=== PATIENT | female | born 1990 | race Caucasian/White ===

== ENCOUNTER 2019-12-06 10:07 | Outpatient (CLI) | payer OTHER, SELFPAY ==
[2019-12-07 13:07] LABS: SARS-CoV-2 RNA PCR Negative
== END 2019-12-06 10:08 | disposition home or self-care (01) ==
PROVIDERS: PCP Family Medicine; Visit Provider Family Medicine
DX: J02.9 Acute pharyngitis, unspecified (principal); Z20.828 Contact with and (suspected) exposure to other viral communicable diseases
CPT/HCPCS: 87081; 87635; 87880; C9803; U0003

== ENCOUNTER 2019-12-17 10:50 | Outpatient (CLI) | payer OTHER, SELFPAY ==
[2019-12-18 20:50] LABS: SARS-CoV-2 RNA PCR Negative
== END 2019-12-17 10:51 | disposition home or self-care (01) ==
PROVIDERS: PCP Family Medicine; Visit Provider Family Medicine
DX: Z20.828 Contact with and (suspected) exposure to other viral communicable diseases (principal)
CPT/HCPCS: 87635; C9803; U0003

== ENCOUNTER 2020-04-03 14:14 | Outpatient (CLI) | payer OTHER, SELFPAY ==
[2020-04-03 15:12] LABS: Influenza Control Valid (Valid); SARS-CoV-2 Ag Negative (Negative)
== END 2020-04-03 14:15 | disposition home or self-care (01) ==
LOC: CHSLAB 14:17
PROVIDERS: PCP Family Medicine; Visit Provider Family Medicine
DX: R50.9 Fever, unspecified (principal)
CPT/HCPCS: 87426; 87804; C9803

== ENCOUNTER 2021-01-19 13:00 | Outpatient (CLI) | payer OTHER, SELFPAY ==
--- NOTE | ~2021-01-19 | US_ITS ---
EXAMINATION: US pelvic complete DATE: 01/19/2021 13:37 INDICATION: Irregular menses TECHNIQUE: Multiple transabdominal and endovaginal sonographic images of the pelvis were obtained. COMPARISON: None. FINDINGS: The uterus measures 10.1 x 4.2 x 6.2 cm. The endometrial complex measures 11 mm. The right ovary measures 3.4 x 1.9 x 1.7 cm. The left ovary measures 3.2 x 1.9 x 2.1 cm. There is normal vascul ar flow in the ovaries. There is a small volume of likely physiologic free fluid in the pelvis. IMPRESSION: 1. No sonographic correlate for the patient's symptoms. Reviewed, dictated and finalized at location [facility]
== END 2021-01-19 13:01 | disposition home or self-care (01) ==
LOC: CHSIMG 13:01
PROVIDERS: PCP Family Medicine; Visit Provider Family Medicine
DX: N92.6 Irregular menstruation, unspecified (principal)
CPT/HCPCS: 76856

== ENCOUNTER 2024-05-25 09:10 | Outpatient (CLI) | payer OTHER, SELFPAY ==
--- NOTE | 2024-05-25 09:20 | ECG_ITS ---
Test Date: 2024-05-25 09:43:00 Measurements Intervals [place] Rate: 65 P: 66 NV: 139 QRS: 77 QRSD: 89 T: 69 QT: 373 QTc: 390 Interpretive Statements SINUS RHYTHM NORMAL ECG No previous ECG available for comparison Electronically Signed On 05-25-2024 10:35:55 CDT by Zheng Trinidad D.O.
--- OUTSIDE RECORDS SUMMARY | 2024-05-25 09:36 | XMS_ITS | Encounter Summary ---
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
--- OUTSIDE RECORDS SUMMARY | 2024-05-25 09:36 | XMS_ITS | Clinical Summary ---
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 Gender Identity Not on file Sexual Orientation Not on file Plan of Treatment Health Maintenance Due Date Last Done Comments Cervical Cancer Screening Pa p Smear (Age 30 to 64) Every 3 Years 1992 Annual Physical 09/17/1995 Hepatitis C 2010 DTaP, Tdap and Td Vaccines ( 1 - Tdap) 09/17/2011 Hepatitis B Vaccines (1 of 3 - 19+ 3-dose series) 09/17/2011 Cervical Cancer Screening Pa p with HPV Testing (Age 30 to 64) Every 5 Years 2022 Cervical Cancer Screening with HPV 2022 COVID-19 Vaccine ( - 2023-2 5 season) 2023 HPV Vaccines Aged Out No longer eligi ble based on patient's age to complete this topic Meningococcal B Vaccine Aged Out No l onger eligible based on patient's age to complete this topic Meningococcal Vaccine Aged Out No teja deng eligible based on patient's age to complete this topic Pneumococcal Vaccine: Pediat rics (0 to 5 Years) and At-Risk Patients (6 to 64 Years) Aged Out No longer eligible b ased on patient's age to complete this topic RSV Immunizations Under 20 Months Aged Out No longer eligible based on patient's age to complete this topic
--- NOTE | 2024-05-28 09:27 | WPDHOLTEREM ---
Holter/Event Monitor Holter/Event Monitor Date of procedure: 05/25/24 Holter/Event Procedure: 24 Hr Holter Monitor Indications: Chest pain Conclusion: 1. 24 hour holter monitor on 05/25/24. 2. Underlying rhythm is sinus rhythm. HR range 43-124 bpm; average HR 72 bpm. HR at 43 bpm was at 5:20 am. 3. There are 3 premature supraventricular complexes. No supraventricular tachycardia. 4. No premature ventricular complexes. No ventricular tachycardia. 5. No significant pauses greater than 2 seconds. 6. No symptoms available for correlation.
== END 2024-05-25 09:11 | disposition home or self-care (01) ==
PROVIDERS: PCP Family Medicine; Visit Provider Nurse Practitioner Family
DX: R07.9 Chest pain, unspecified (principal); R00.2 Palpitations
CPT/HCPCS: 93005; 93225; 93226